=== PATIENT | male | born 1940 | race Caucasian/White ===

== ENCOUNTER 2019-09-06 10:24 | Inpatient (IN) | payer MEDICARE ==
[2019-09-06] VITALS (11 sets, daily range): BP systolic 89–118; BP diastolic 52–78
[~2019-09-06] VITALS: Ht 177.8 cm; Wt 84.1 kg
[2019-09-06 12:31] LABS: BASOPHILS % (AUTO) 0.4 % (0-1); EOSINOPHILS # (AUTO) 0.1 X10'3 (0-0.9); EOSINOPHILS % (AUTO) 0.9 % (0-6); HEMATOCRIT 23.2 % (42.0-52.0); HEMOGLOBIN 7.9 g/dl (14.0-17.9); LYMPHOCYTES # (AUTO) 1.5 X10'3 (1.1-4.8); LYMPHOCYTES % (AUTO) 13.5 % (21-51); MEAN CORPUSCULAR HEMOGLOBIN 31.3 PG (27.0-31.0); MEAN CORPUSCULAR HGB CONC 34.2 g/dL (33.0-36.5); MEAN CORPUSCULAR VOLUME 91.4 FL (78-98); MEAN PLATELET VOLUME 8.6 FL (7.4-10.4); MONOCYTES # (AUTO) 0.7 X10'3 (0-0.9); MONOCYTES % (AUTO) 6.1 % (2-12); NEUTROPHILS # (AUTO) 8.7 X10'3 (1.8-7.7); NEUTROPHILS % (AUTO) 79.1 % (42-75); PLATELET COUNT 229 X10'3 (140-440); RED BLOOD COUNT 2.53 X10'6 (4.70-6.10); RED CELL DISTRIBUTION WIDTH 12.6 % (11.5-14.5); WHITE BLOOD COUNT 10.9 X10'3 (4.5-11.0)
[2019-09-06 12:42] LABS: OCCULT BLOOD STOOL POSITIVE (Neg)
[2019-09-06 12:46] LABS: ALANINE AMINOTRANSFERASE 39 U/L (12-78); ALBUMIN 3.3 G/DL (3.4-5.0); ALBUMIN/GLOBULIN RATIO 1.1 (1.1-1.5); ALKALINE PHOSPHATASE 44 IU/L (46-116); ANION GAP 8 (8-16); ASPARTATE AMINO TRANSFERASE 24 U/L (10-37); BILIRUBIN,TOTAL 0.3 MG/DL (0.1-1.0); BLOOD UREA NITROGEN 64 MG/DL (7-18); BUN/CREATININE RATIO 48.9 (5.4-32.0); CALCIUM 10.7 MG/DL (8.5-10.1); CHLORIDE 111 MMOL/L (99-107); CREATININE 1.31 MG/DL (0.60-1.10); GLUCOSE 129 MG/DL (70-104); POTASSIUM 4.8 MMOL/L (3.5-5.1); SODIUM 140 MMOL/L (135-145); TOTAL CARBON DIOXIDE 21.5 MMOL/L (24-32); TOTAL PROTEIN 6.3 G/DL (6.4-8.2); eGFR 53 ML/MIN
[2019-09-06 12:52] LABS: PARTIAL THROMBOPLASTIN TIME 20 SECONDS (22-32)
[2019-09-06] MEDS ORDERED: pantoprazole 40 MG vial IV ONE (13:00)
[2019-09-06 13:10] LABS: CLARITY,URINE CLEAR (Clear); COLOR,URINE YELLOW (Yellow); GLUCOSE, URINE NEGATIVE (Neg); KETONES,URINE NEGATIVE (Neg); LEUKOCYTE ESTERASE ,URINE NEGATIVE (Neg); NITRITES, URINE NEGATIVE (Neg); OCCULT BLOOD,URINE NEGATIVE (Neg); PROTEIN,URINE NEGATIVE (Neg); UROBILINOGEN,URINE 0.2 E.U/dL (0.2-1.0)
[2019-09-06] MEDS ORDERED: mag hydrox/Alum hydrox/simeth 30ml oral suspension PO PRN (13:10)
[2019-09-06] MEDS ORDERED: HYDROcodone/acetaminophen 5mg/325mg tablet PO PRN (13:10)
[2019-09-06] MEDS ORDERED: acetaminophen 325mg tablet PO PRN ×2 (13:10)
[2019-09-06] MEDS ORDERED: morphine 2 MG/ML inj. syringe IV PRN ×2 (13:10)
[2019-09-06] MEDS ORDERED: magnesium hydroxide 30ml (MOM) UD suspension PO PRN (13:10)
[2019-09-06] MEDS ORDERED: ondansetron/PF 4mg/2ml inj IV PRN (13:10)
[2019-09-06 13:11] LABS: UA COLLECTION TYPE URINAL
[2019-09-06] MEDS: pantoprazole 40MG/NS 100ML BAG 100 ML IV SCH ×3 (13:31→21:00)
[2019-09-06] MEDS: normal saline 1000ml 1,000 ML IV SCH (13:31)
[2019-09-06] MEDS ORDERED: LISI-604 PO (14:12)
[2019-09-06] MEDS ORDERED: OMEG-82 PO (14:12)
[2019-09-06] MEDS ORDERED: CHOL10006 PO (14:12)
[2019-09-06] MEDS ORDERED: ASPI81TA52 PO (14:12)
[2019-09-06] MEDS ORDERED: MULT-1180 (14:12)
--- NOTE | 2019-09-06 15:30 | NUR ---
1510 received report from Tisha NEAL in ER. 153-0
--- NOTE | 2019-09-06 15:30 | NUR ---
Pt arrived from ER via gurney accompanied by RN and pt's . To room 348B. No s/sx distress. Pt oriented to room and plan of care.
[2019-09-06] MEDS ORDERED: pantoprazole 40MG/NS 100ML BAG 100 ML IV SCH (16:00)
[2019-09-06] MEDS ORDERED: LIDOcaine Viscous 15ml cup ONE (16:26)
[2019-09-06] MEDS ORDERED: MIDAZolam 5mg/5ml vial ONE (16:26)
[2019-09-06] MEDS ORDERED: fentaNYL/PF 50MCG/1 ML 2ML syringe ONE (16:26)
--- NOTE | 2019-09-06 16:45 | NUR ---
Pt down to GI lab via w/c accompanied by techMike PIV S/L.
--- NOTE | 2019-09-06 18:00 | NUR ---
Pt back from GI lab via w/c. Pt alert and oriented and with no complaints. PIV NS and Protonix drip restarted per orders. VSS.
--- NOTE | 2019-09-06 19:35 | NUR ---
Problems reprioritized. Patient report given, questions answered & plan of care reviewed with Nishi NEAL.
--- NOTE | 2019-09-06 20:44 | NUR ---
nutrition for 1000 and 1400 entered on wrong patient.
[2019-09-07] VITALS (13 sets, daily range): BP systolic 97–118; BP diastolic 49–61
[2019-09-07] MEDS: pantoprazole 40MG/NS 100ML BAG 100 ML IV SCH ×5 (00:35→17:38)
[2019-09-07] MEDS: normal saline 1000ml 1,000 ML IV SCH ×4 (00:37→23:50)
[2019-09-07 05:30] LABS: ALBUMIN 2.7 G/DL (3.4-5.0); ANION GAP 9 (8-16); BLOOD UREA NITROGEN 54 MG/DL (7-18); BUN/CREATININE RATIO 39.1 (5.4-32.0); CALCIUM 8.8 MG/DL (8.5-10.1); CHLORIDE 115 MMOL/L (99-107); CREATININE 1.38 MG/DL (0.60-1.10); GLUCOSE 103 MG/DL (70-104); POTASSIUM 4.4 MMOL/L (3.5-5.1); SODIUM 145 MMOL/L (135-145); TOTAL CARBON DIOXIDE 21.1 MMOL/L (24-32); eGFR 50 ML/MIN
[2019-09-07 06:11] LABS: BASOPHILS % (AUTO) 0.5 % (0-1); EOSINOPHILS # (AUTO) 0.2 X10'3 (0-0.9); EOSINOPHILS % (AUTO) 2.6 % (0-6); LYMPHOCYTES # (AUTO) 1.9 X10'3 (1.1-4.8); LYMPHOCYTES % (AUTO) 22.5 % (21-51); MEAN CORPUSCULAR HEMOGLOBIN 31.5 PG (27.0-31.0); MEAN CORPUSCULAR HGB CONC 34.3 g/dL (33.0-36.5); MEAN CORPUSCULAR VOLUME 92.1 FL (78-98); MEAN PLATELET VOLUME 8.7 FL (7.4-10.4); MONOCYTES # (AUTO) 0.6 X10'3 (0-0.9); MONOCYTES % (AUTO) 7.2 % (2-12); NEUTROPHILS # (AUTO) 5.7 X10'3 (1.8-7.7); NEUTROPHILS % (AUTO) 67.2 % (42-75); PLATELET COUNT 190 X10'3 (140-440); RED CELL DISTRIBUTION WIDTH 12.7 % (11.5-14.5); WHITE BLOOD COUNT 8.5 X10'3 (4.5-11.0)
[2019-09-07 06:28] LABS: HEMATOCRIT 18.4 % (42.0-52.0); HEMOGLOBIN 6.3 g/dl (14.0-17.9)
--- NOTE | 2019-09-07 06:55 | NUR ---
Patient in room [facility]. I have received report from Nishi NEAL and had the opportunity to ask questions and assume patient care.
--- NOTE | 2019-09-07 07:10 | NUR ---
HGB 6,3,hct 18.4 dr teresita black
[2019-09-07] MEDS ORDERED: FLU VACC QS2019-20 36MOS UP/PF 60 MCG/0.5 ML SYRINGE IMVAC ONE (13:55)
[2019-09-07] MEDS ORDERED: pneumococcal 23-VAL P-sac vacc 25 mcg/0.5ml vial IMVAC ONE (13:55)
--- NOTE | 2019-09-07 16:33 | NUR ---
PATIENT SEEN BY dR BELL 2 UNITS OF BLOOD ORDERED. WILL CONTINUE TO MONITOR.
--- NOTE | 2019-09-07 18:30 | NUR ---
Both units given and tolerated. . Hemogram ordered x2. Report given to olivia NEAL
[2019-09-07 19:22] LABS: HEMATOCRIT 24.9 % (42.0-52.0); HEMOGLOBIN 8.6 g/dl (14.0-17.9); MEAN CORPUSCULAR HEMOGLOBIN 31.2 PG (27.0-31.0); MEAN CORPUSCULAR HGB CONC 34.4 g/dL (33.0-36.5); MEAN CORPUSCULAR VOLUME 90.6 FL (78-98); MEAN PLATELET VOLUME 8.9 FL (7.4-10.4); PLATELET COUNT 179 X10'3 (140-440); RED BLOOD COUNT 2.75 X10'6 (4.70-6.10); RED CELL DISTRIBUTION WIDTH 13.6 % (11.5-14.5); WHITE BLOOD COUNT 8.9 X10'3 (4.5-11.0)
[2019-09-07 22:42] LABS: HEMATOCRIT 23.2 % (42.0-52.0); MEAN CORPUSCULAR HEMOGLOBIN 31.2 PG (27.0-31.0); MEAN CORPUSCULAR HGB CONC 34.5 g/dL (33.0-36.5); MEAN CORPUSCULAR VOLUME 90.5 FL (78-98); MEAN PLATELET VOLUME 8.5 FL (7.4-10.4); PLATELET COUNT 171 X10'3 (140-440); RED BLOOD COUNT 2.57 X10'6 (4.70-6.10); RED CELL DISTRIBUTION WIDTH 13.8 % (11.5-14.5); WHITE BLOOD COUNT 8.8 X10'3 (4.5-11.0)
[2019-09-08] VITALS: BP 110/59
[2019-09-08] MEDS: pantoprazole 40MG/NS 100ML BAG 100 ML IV SCH ×6 (00:30→22:25)
[2019-09-08 05:24] LABS: BASOPHILS % (AUTO) 0.6 % (0-1); EOSINOPHILS # (AUTO) 0.3 X10'3 (0-0.9); EOSINOPHILS % (AUTO) 3.7 % (0-6); HEMOGLOBIN 7.6 g/dl (14.0-17.9); LYMPHOCYTES # (AUTO) 1.3 X10'3 (1.1-4.8); MEAN CORPUSCULAR HEMOGLOBIN 31.3 PG (27.0-31.0); MEAN CORPUSCULAR HGB CONC 34.6 g/dL (33.0-36.5); MEAN CORPUSCULAR VOLUME 90.4 FL (78-98); MEAN PLATELET VOLUME 8.6 FL (7.4-10.4); MONOCYTES # (AUTO) 0.6 X10'3 (0-0.9); MONOCYTES % (AUTO) 7.2 % (2-12); NEUTROPHILS # (AUTO) 5.5 X10'3 (1.8-7.7); NEUTROPHILS % (AUTO) 71.5 % (42-75); PLATELET COUNT 166 X10'3 (140-440); RED BLOOD COUNT 2.43 X10'6 (4.70-6.10); WHITE BLOOD COUNT 7.7 X10'3 (4.5-11.0)
[2019-09-08 05:29] LABS: ALBUMIN 2.5 G/DL (3.4-5.0); ANION GAP 8 (8-16); BLOOD UREA NITROGEN 34 MG/DL (7-18); BUN/CREATININE RATIO 26.8 (5.4-32.0); CALCIUM 7.9 MG/DL (8.5-10.1); CHLORIDE 115 MMOL/L (99-107); CREATININE 1.27 MG/DL (0.60-1.10); GLUCOSE 94 MG/DL (70-104); SODIUM 144 MMOL/L (135-145); TOTAL CARBON DIOXIDE 21.2 MMOL/L (24-32); eGFR 55 ML/MIN
--- NOTE | 2019-09-08 06:44 | NUR ---
Patient in room [facility] 348. I have received report from olivia martin and had the opportunity to ask questions and assume patient care.
--- NOTE | 2019-09-08 07:00 | NUR ---
Patient in room [facility] 348. I have received report from Mendez solorio RN and had the opportunity to ask questions and assume patient care.
--- NOTE | 2019-09-08 07:00 | NUR ---
Patient in room [facility] 348. I have received report from Lucille NEAL and had the opportunity to ask questions and assume patient care.
--- NOTE | 2019-09-08 07:05 | NUR ---
Problems reprioritized. Patient report given, questions answered & plan of care reviewed with MAN. Addendum: 09/08/19 at 0705 by Kayode Longoria RN Amended: Links added.
[2019-09-08 08:29] VITALS: BP 110/60
--- NOTE | 2019-09-08 10:15 | NUR ---
Student Medication Administration: For this medication-pass time frame, all medication were reviewed, dispensed, administered and documented per hospital policy by Leigha Worthington, nursing unit clerk.
--- NOTE | 2019-09-08 10:15 | NUR ---
Student documentation: I have reviewed and agree with all interventions, assessments performed and documented by Leigha Worthington, nursing instructor.
--- NOTE | 2019-09-08 10:45 | NUR ---
Student Medication Administration: For this medication-pass time frame, all medication were reviewed, dispensed, administered and documented per hospital policy by karen Price.
[2019-09-08 11:00] VITALS: BP 111/55
--- NOTE | 2019-09-08 12:09 | NUR ---
Problems reprioritized. Patient report given, questions answered & plan of care reviewed with Lucille NEAL.
--- NOTE | 2019-09-08 12:16 | NUR ---
Problems reprioritized. Patient report given, questions answered & plan of care reviewed with Lucille NEAL.
[2019-09-08 12:34] LABS: HEMATOCRIT 22.8 % (42.0-52.0); HEMOGLOBIN 7.9 g/dl (14.0-17.9); MEAN CORPUSCULAR HEMOGLOBIN 31.5 PG (27.0-31.0); MEAN CORPUSCULAR HGB CONC 34.7 g/dL (33.0-36.5); MEAN CORPUSCULAR VOLUME 90.7 FL (78-98); MEAN PLATELET VOLUME 8.4 FL (7.4-10.4); PLATELET COUNT 188 X10'3 (140-440); RED BLOOD COUNT 2.52 X10'6 (4.70-6.10); RED CELL DISTRIBUTION WIDTH 13.8 % (11.5-14.5); WHITE BLOOD COUNT 8.6 X10'3 (4.5-11.0)
--- NOTE | 2019-09-08 16:55 | NUR ---
Patient appeared to have more energy today, able to ambulate 300ft, up to shower seen by Dr Espinoza. Is on q6hrly hemograms . Values slowly trending up see labs. Colostomy bag changed, still observing dark stool .will continue to monitor
--- NOTE | 2019-09-08 18:00 | NUR ---
Problems reprioritized. Patient report given, questions answered & plan of care reviewed with Mendez NEAL.
[2019-09-08 18:26] LABS: HEMATOCRIT 23.8 % (42.0-52.0); HEMOGLOBIN 8.2 g/dl (14.0-17.9); MEAN CORPUSCULAR HEMOGLOBIN 31.3 PG (27.0-31.0); MEAN CORPUSCULAR HGB CONC 34.4 g/dL (33.0-36.5); MEAN CORPUSCULAR VOLUME 91.1 FL (78-98); MEAN PLATELET VOLUME 8.5 FL (7.4-10.4); PLATELET COUNT 190 X10'3 (140-440); RED BLOOD COUNT 2.61 X10'6 (4.70-6.10); RED CELL DISTRIBUTION WIDTH 13.9 % (11.5-14.5); WHITE BLOOD COUNT 9.5 X10'3 (4.5-11.0)
[2019-09-08 18:40] VITALS: BP 119/97
[2019-09-09] VITALS: BP 108/59
[2019-09-09 00:30] LABS: HEMOGLOBIN 7.2 g/dl (14.0-17.9); MEAN CORPUSCULAR HEMOGLOBIN 31.7 PG (27.0-31.0); MEAN CORPUSCULAR HGB CONC 34.9 g/dL (33.0-36.5); MEAN PLATELET VOLUME 8.8 FL (7.4-10.4); PLATELET COUNT 154 X10'3 (140-440); RED BLOOD COUNT 2.26 X10'6 (4.70-6.10); RED CELL DISTRIBUTION WIDTH 13.9 % (11.5-14.5); WHITE BLOOD COUNT 8.2 X10'3 (4.5-11.0)
[2019-09-09 00:32] LABS: HEMATOCRIT 20.6 % (42.0-52.0)
[2019-09-09 01:07] LABS: HEMOGLOBIN 7.6 g/dl (14.0-17.9); MEAN CORPUSCULAR HEMOGLOBIN 32.4 PG (27.0-31.0); MEAN CORPUSCULAR HGB CONC 35.6 g/dL (33.0-36.5); MEAN PLATELET VOLUME 8.2 FL (7.4-10.4); PLATELET COUNT 178 X10'3 (140-440); RED BLOOD COUNT 2.33 X10'6 (4.70-6.10); RED CELL DISTRIBUTION WIDTH 13.7 % (11.5-14.5); WHITE BLOOD COUNT 8.9 X10'3 (4.5-11.0)
[2019-09-09 01:12] LABS: HEMATOCRIT 21.2 % (42.0-52.0)
[2019-09-09 01:17] LABS: ALBUMIN 2.6 G/DL (3.4-5.0); ANION GAP 7 (8-16); BLOOD UREA NITROGEN 31 MG/DL (7-18); BUN/CREATININE RATIO 20.5 (5.4-32.0); CALCIUM 8.2 MG/DL (8.5-10.1); CHLORIDE 114 MMOL/L (99-107); CREATININE 1.51 MG/DL (0.60-1.10); GLUCOSE 99 MG/DL (70-104); POTASSIUM 3.9 MMOL/L (3.5-5.1); SODIUM 143 MMOL/L (135-145); TOTAL CARBON DIOXIDE 21.6 MMOL/L (24-32); eGFR 45 ML/MIN
[2019-09-09] MEDS: pantoprazole 40MG/NS 100ML BAG 100 ML IV SCH ×2 (03:30→09:27)
[2019-09-09] MEDS: normal saline 1000ml 1,000 ML IV SCH (04:46)
[2019-09-09 04:52] LABS: BASOPHILS % (AUTO) 0.5 % (0-1); EOSINOPHILS # (AUTO) 0.4 X10'3 (0-0.9); EOSINOPHILS % (AUTO) 4.4 % (0-6); HEMATOCRIT 22.6 % (42.0-52.0); LYMPHOCYTES # (AUTO) 1.2 X10'3 (1.1-4.8); LYMPHOCYTES % (AUTO) 14.2 % (21-51); MEAN CORPUSCULAR HGB CONC 35.4 g/dL (33.0-36.5); MEAN CORPUSCULAR VOLUME 90.5 FL (78-98); MEAN PLATELET VOLUME 8.3 FL (7.4-10.4); MONOCYTES # (AUTO) 0.7 X10'3 (0-0.9); MONOCYTES % (AUTO) 8.1 % (2-12); NEUTROPHILS # (AUTO) 5.9 X10'3 (1.8-7.7); NEUTROPHILS % (AUTO) 72.8 % (42-75); PLATELET COUNT 175 X10'3 (140-440); RED CELL DISTRIBUTION WIDTH 13.4 % (11.5-14.5); WHITE BLOOD COUNT 8.1 X10'3 (4.5-11.0)
--- NOTE | 2019-09-09 06:15 | NUR ---
Patient in room [facility] 348. I have received report from VAL Simms and had the opportunity to ask questions and assume patient care.
--- NOTE | 2019-09-09 06:31 | NUR ---
Problems reprioritized. Patient report given, questions answered & plan of care reviewed with NALLELY. Addendum: 09/09/19 at 0632 by Kayode Longoria RN Amended: Links added.
--- NOTE | 2019-09-09 06:32 | NUR ---
Problems reprioritized. Patient report given, questions answered & plan of care reviewed with NALLELY. Addendum: 09/09/19 at 0633 by Kayode Longoria RN Amended: Links added.
[2019-09-09 07:31] VITALS: BP 113/58
[2019-09-09] MEDS ORDERED: PANT40TA4 PO (10:10)
[2019-09-09] MEDS ORDERED: FERR325T28 PO (10:12)
--- NOTE | 2019-09-09 11:06 | NUR ---
Patient discharged home via family and taken from unit via wheelchair with x1 staff. PIV removed with cannula intact. Tele monitor removed and tele chamber notified. Patient had two family members at the time of discharge. Discharge instructions were discussed with all. Time was given for questions and answers regarding discharge. All stated an understanding of these. Patient was encouraged to follow up with PCP, own GI MD and Dr. Salazar regarding biopsy results. New prescriptions were transcribed to [facility] in [place] per patient request. Patient was instructed on when to restart medications and what to avoid. Patient was given education on avoiding acidic foods.
== END 2019-09-09 11:08 | disposition home or self-care (01) | DRG 378 ==
LOC: ER 10:24 → ED HOLD 13:10 → UNDOADMIN 13:28 → EDBEDREQ 14:49 → SUR 3N 15:24 → ED HOLD 15:24
PROVIDERS: ADMIT Internal Medicine; ATTEND Family Medicine
PROC: 0DB48ZX Excision of Esophagogastric Junction, Via Natural or Artificial Opening Endoscopic, Diagnostic (ICD-10-PCS; principal; 2019-09-06)
PROC: 0DB68ZX Excision of Stomach, Via Natural or Artificial Opening Endoscopic, Diagnostic (ICD-10-PCS; 2019-09-06)
PROC: 3E0234Z Introduction of Serum, Toxoid and Vaccine into Muscle, Percutaneous Approach (ICD-10-PCS; 2019-09-07)
PROC: 3E02340 Introduction of Influenza Vaccine into Muscle, Percutaneous Approach (ICD-10-PCS; 2019-09-07)
PROC: 30233N1 Transfusion of Nonautologous Red Blood Cells into Peripheral Vein, Percutaneous Approach (ICD-10-PCS; 2019-09-07)
DX: K26.4 Chronic or unspecified duodenal ulcer with hemorrhage (principal); D62 Acute posthemorrhagic anemia; N17.9 Acute kidney failure, unspecified; K21.0 Gastro-esophageal reflux disease with esophagitis; I12.9 Hypertensive chronic kidney disease with stage 1 through stage 4 chronic kidney disease, or unspecified chronic kidney disease; N18.9 Chronic kidney disease, unspecified; R79.89 Other specified abnormal findings of blood chemistry; Z87.891 Personal history of nicotine dependence; Z23 Encounter for immunization; Z93.2 Ileostomy status; Z93.3 Colostomy status; Z79.899 Other long term (current) drug therapy; Z79.82 Long term (current) use of aspirin
CPT/HCPCS: 36415; 36430; 43239; 71045; 80048; 80053; 81003; 82272; 85025; 85027; 85610; 85730; 86885; 86900; 86901; 86920; 87081; 87502; 87503; 90732; 93005; 99152; 99285; A4620; C9113; G0378; J2250; J3010; J7030; J7040; P9016; Q2037

== ENCOUNTER 2022-01-21 15:52 | Inpatient (IN) | payer MEDICARE ==
[~2022-01-21] VITALS: Ht 177.8 cm; Wt 84.8 kg
[~2022-01-21 15:52] MED LIST: CHOL10006 PO; LISI5TAB22 PO; MULT-1180; OMEG-82 PO; PANT40TA54 PO
[2022-01-21] MEDS ORDERED: ondansetron/PF 4mg/2ml inj IV ONE (17:00)
[2022-01-21] MEDS ORDERED: normal saline 1000ML IV soln IVB ONE (17:25)
[2022-01-21] MEDS ORDERED: ketorolac trometh. 30mg/ml inj. IV ONE (17:25)
--- NOTE | 2022-01-21 17:27 | NUR ---
robert blood but IV heplock leaked.
[2022-01-21 17:52] LABS: CLARITY,URINE CLEAR (Clear); COLOR,URINE YELLOW (Yellow); GLUCOSE, URINE NEGATIVE (Neg); KETONES,URINE NEGATIVE (Neg); LEUKOCYTE ESTERASE ,URINE NEGATIVE (Neg); NITRITES, URINE NEGATIVE (Neg); OCCULT BLOOD,URINE NEGATIVE (Neg); PH,URINE 5.5 (4.8-8.0); PROTEIN,URINE NEGATIVE (Neg); UROBILINOGEN,URINE 0.2 E.U/dL (0.2-1.0)
[2022-01-21 17:54] LABS: BASOPHILS % (AUTO) 0.3 % (0-1); EOSINOPHILS # (AUTO) 0.1 X10'3 (0-0.9); HEMOGLOBIN 14.4 g/dl (14.0-17.9); LYMPHOCYTES # (AUTO) 1.1 X10'3 (1.1-4.8); MEAN CORPUSCULAR HEMOGLOBIN 30.7 PG (27.0-31.0); MEAN CORPUSCULAR HGB CONC 34.2 g/dL (33.0-36.5); MEAN CORPUSCULAR VOLUME 89.9 FL (78-98); MEAN PLATELET VOLUME 8.8 FL (7.4-10.4); MONOCYTES % (AUTO) 7.9 % (2-12); NEUTROPHILS # (AUTO) 10.1 X10'3 (1.8-7.7); NEUTROPHILS % (AUTO) 81.8 % (42-75); PLATELET COUNT 222 X10'3 (140-440); RED BLOOD COUNT 4.68 X10'6 (4.70-6.10); RED CELL DISTRIBUTION WIDTH 13.3 % (11.5-14.5); WHITE BLOOD COUNT 12.3 X10'3 (4.5-11.0)
[2022-01-21 17:56] LABS: UA COLLECTION TYPE CLN CATCH MIDSTREAM
[2022-01-21 18:10] LABS: ALANINE AMINOTRANSFERASE 38 U/L (12-78); ALBUMIN/GLOBULIN RATIO 0.9 (1.1-1.5); ALKALINE PHOSPHATASE 69 IU/L (46-116); ANION GAP 10 (8-16); ASPARTATE AMINO TRANSFERASE 25 U/L (10-37); BILIRUBIN,TOTAL 0.6 MG/DL (0.1-1.0); BLOOD UREA NITROGEN 37 MG/DL (7-18); CHLORIDE 105 MMOL/L (99-107); CREATININE 2.31 MG/DL (0.60-1.10); GLUCOSE 112 MG/DL (70-104); SODIUM 139 MMOL/L (135-145); TOTAL PROTEIN 8.3 G/DL (6.4-8.2); eGFR 27 ML/MIN
[2022-01-21 18:17] LABS: POTASSIUM 4.5 MMOL/L (3.5-5.1)
[2022-01-21] MEDS ORDERED: ondansetron/PF 4mg/2ml inj IV PRN (19:20)
[2022-01-21] MEDS ORDERED: POTASSIUM BICARB 20meq eff tab 20 MEQ TABLET.EFF PO PRN ×2 (19:20)
[2022-01-21] MEDS ORDERED: acetaminophen 325mg tablet PO PRN (19:20)
[2022-01-21] MEDS ORDERED: mag hydrox/Alum hydrox/simeth 30ml oral suspension PO PRN (19:20)
[2022-01-21] MEDS ORDERED: magnesium hydroxide 30ml (MOM) UD suspension PO PRN (19:20)
[2022-01-21] MEDS: normal saline 1000ml 1,000 ML IV SCH (19:20)
[2022-01-21] MEDS ORDERED: magnesium 2GM in 50ml NS 50 ML IV PRN (19:20)
[2022-01-21] MEDS ORDERED: potassium CL 10mEq/100ml bag 100 ML IV PRN (19:20)
[2022-01-21] MEDS ORDERED: morphine 2 MG/ML inj. syringe IV PRN ×2 (19:20)
[2022-01-21] MEDS ORDERED: magnesium Cl slow-release 64mg tablet PO PRN (19:20)
[2022-01-21] MEDS ORDERED: magnesium 4gm in 100ml NS 100 ML IV PRN (19:20)
[2022-01-21 19:49] LABS: MAGNESIUM 1.8 MG/DL (1.5-2.4)
[2022-01-21] MEDS: K and/or MAG REPLACEMENT MC SCH ×4 (20:00→21:46)
[2022-01-21] MEDS: docusate sod 100mg capsule PO SCH (20:39)
[2022-01-21] MEDS ORDERED: tamsulosin 0.4mg capsule PO SCH (21:00)
[2022-01-22] VITALS (10 sets, daily range): BP systolic 125–139; BP diastolic 74–88
--- NOTE | 2022-01-22 05:16 | NUR ---
CONSENT FOR PROCEDURE SIGNED BY PT
[2022-01-22] MEDS: normal saline 1000ml 1,000 ML IV SCH (06:16)
[2022-01-22 07:34] LABS: BASOPHILS % (AUTO) 0.3 % (0-1); EOSINOPHILS # (AUTO) 0.1 X10'3 (0-0.9); EOSINOPHILS % (AUTO) 1.8 % (0-6); HEMATOCRIT 37.8 % (42.0-52.0); HEMOGLOBIN 12.7 g/dl (14.0-17.9); LYMPHOCYTES # (AUTO) 1.1 X10'3 (1.1-4.8); LYMPHOCYTES % (AUTO) 13.5 % (21-51); MEAN CORPUSCULAR HEMOGLOBIN 30.7 PG (27.0-31.0); MEAN CORPUSCULAR HGB CONC 33.6 g/dL (33.0-36.5); MEAN CORPUSCULAR VOLUME 91.5 FL (78-98); MEAN PLATELET VOLUME 8.4 FL (7.4-10.4); MONOCYTES # (AUTO) 1.1 X10'3 (0-0.9); MONOCYTES % (AUTO) 13.8 % (2-12); NEUTROPHILS # (AUTO) 5.5 X10'3 (1.8-7.7); NEUTROPHILS % (AUTO) 70.6 % (42-75); PLATELET COUNT 148 X10'3 (140-440); RED BLOOD COUNT 4.13 X10'6 (4.70-6.10); RED CELL DISTRIBUTION WIDTH 13.5 % (11.5-14.5); WHITE BLOOD COUNT 7.8 X10'3 (4.5-11.0)
[2022-01-22 07:49] LABS: ALANINE AMINOTRANSFERASE 28 U/L (12-78); ALBUMIN/GLOBULIN RATIO 0.8 (1.1-1.5); ALKALINE PHOSPHATASE 56 IU/L (46-116); ANION GAP 11 (8-16); ASPARTATE AMINO TRANSFERASE 17 U/L (10-37); BILIRUBIN,TOTAL 0.6 MG/DL (0.1-1.0); BLOOD UREA NITROGEN 34 MG/DL (7-18); BUN/CREATININE RATIO 14.5 (5.4-32.0); CALCIUM 8.7 MG/DL (8.5-10.1); CHLORIDE 111 MMOL/L (99-107); CREATININE 2.35 MG/DL (0.60-1.10); GLUCOSE 95 MG/DL (70-104); MAGNESIUM 1.8 MG/DL (1.5-2.4); POTASSIUM 4.2 MMOL/L (3.5-5.1); SODIUM 143 MMOL/L (135-145); TOTAL CARBON DIOXIDE 21.2 MMOL/L (24-32); TOTAL PROTEIN 6.7 G/DL (6.4-8.2); eGFR 27 ML/MIN
[2022-01-22] MEDS ORDERED: iohexol 300 MG/1 ML 10ml vial ONE (07:59)
[2022-01-22] MEDS ORDERED: pantoprazole 40MG/NS 100ML BAG 100 ML IV SCH (08:00)
[2022-01-22] MEDS: K and/or MAG REPLACEMENT MC SCH (08:00)
[2022-01-22] MEDS: docusate sod 100mg capsule PO SCH (08:00)
[2022-01-22] MEDS ORDERED: proCHLORperazine 10 MG/2 ml inj IV PRN (09:30)
[2022-01-22] MEDS ORDERED: ringers solution, lacted 1,000 ML IV SCH (09:30)
[2022-01-22] MEDS ORDERED: ondansetron/PF 4mg/2ml inj IV PRN (09:30)
[2022-01-22] MEDS ORDERED: morphine 2 MG/ML inj. syringe IV PRN (09:30)
[2022-01-22] MEDS ORDERED: meperidine/PF 25mg/ml syringe IV PRN ×3 (09:30)
[2022-01-22] MEDS ORDERED: morphine 4 MG/ML inj SYRINge IV PRN (09:30)
--- NOTE | 2022-01-22 09:30 | NUR ---
PATIENT EMPTIED ILEOSTOMY BAG AND IS READY FOR OR. TRANSPORTED TO OR PER [facility], IN GOOD CONDITION.
[2022-01-22] MEDS ORDERED: fentaNYL/PF 50MCG/1 ML 2ML syringe ONE (09:38)
[2022-01-22] MEDS ORDERED: propofol inj 20 ML IV ONE (09:38)
[2022-01-22] MEDS ORDERED: ceFAZolin 1000mg inj ONE ×2 (09:52)
--- NOTE | 2022-01-22 10:20 | NUR ---
Received from OR via , accompanied by Anesthesiologist and report given by Anesthesiolgist. PATIENT A&OX4, DENIES PAIN, V/S WNL, SCD ON , PIV 20G RUE, CYSTOSCOPIC ENTRY SITE NO S/S OF COMPLICATIONS
--- NOTE | 2022-01-22 11:22 | NUR ---
DR BANEGAS STATES PATIENT CAN BE D/C AND F/U WITH HIM AND CALL OFFICE IN AM. DR OSBORNE HERE TO SEE PATIENT AND WRITE D/C ORDERS
--- NOTE | 2022-01-22 11:50 | NUR ---
PATIENT A&OX4, DENIES PAIN, V/S WNL, SCD OFF , PIV 20G RUE D/C, CYSTOSCOPIC ENTRY SITE NO S/S OF COMPLICATIONS. I HAVE REVIEWED D/C INFORMATION AND PATIENT AND DAUGHTER HAVE VERBALIZED UNDERSTANDING. PATIENT D/C HOME WITH ALL BELONGINGS AND DAUGHTER GAVE TRANSPORT
[2022-01-23] MEDS ORDERED: pantoprazole 40mg Tablet.DR PO SCH (07:30)
== END 2022-01-22 11:50 | disposition home or self-care (01) | DRG 661 ==
LOC: ER 15:52 → ED HOLD 19:22
PROVIDERS: ADMIT Internal Medicine; ATTEND Internal Medicine
PROC: BT1D1ZZ Fluoroscopy of Right Kidney, Ureter and Bladder using Low Osmolar Contrast (ICD-10-PCS; 2022-01-22)
PROC: 0T768DZ Dilation of Right Ureter with Intraluminal Device, Via Natural or Artificial Opening Endoscopic (ICD-10-PCS; principal; 2022-01-22 09:36)
DX: N13.2 Hydronephrosis with renal and ureteral calculous obstruction (principal); E86.0 Dehydration; I10 Essential (primary) hypertension; Z20.822 Contact with and (suspected) exposure to COVID-19; N28.89 Other specified disorders of kidney and ureter; R79.89 Other specified abnormal findings of blood chemistry; N17.9 Acute kidney failure, unspecified; N32.89 Other specified disorders of bladder; Z82.0 Family history of epilepsy and other diseases of the nervous system; Z87.11 Personal history of peptic ulcer disease; Z87.442 Personal history of urinary calculi; Z90.49 Acquired absence of other specified parts of digestive tract; Z93.3 Colostomy status; Z79.899 Other long term (current) drug therapy
CPT/HCPCS: 36415; 74176; 76000; 80053; 81003; 83735; 85025; 96361; 96374; 96375; 99285; A4618; C1758; C1769; C2617; C9113; G0378; J0690; J1885; J2405; J2704; J3010; J7030; J7120; Q9967